=== PATIENT | male | born 1960 | race Caucasian/White ===

== ENCOUNTER 2018-04-26 13:10 | Outpatient (CLI) | payer BC ==
--- NOTE | 2018-04-27 13:47 | PET ---
NUCLEAR MEDICINE FDG PET CT: (Positron Emission Tomography) DATE: 04/26/18 HISTORY: 57-year-old male with esophageal cancer, C15.5, initial staging. COMPARISON: None. TECHNIQUE: IV injection F-18 Fluorodeoxyglucose (FDG) dose: 11.1 mCi PET and attenuation-correction CT performed from skull base to proximal thighs. FINDINGS: Attenuation correction CT demonstrates retained barium within numerous sigmoid colonic diverticula an d several in descending colonic diverticula. Cholecystectomy clips in the gallbladder fossa. No suspi cious hypermetabolic activity within the neck, chest, abdomen, or pelvis. IMPRESSION: No evidence of metastatic disease. FAUSTINA Gonzales POS: ROSA MARIA
== END 2018-04-26 13:11 | disposition home or self-care (01) ==
LOC: PET 13:10
PROVIDERS: ATTEND Internal Medicine Hematology & Oncology
DX: C15.9 Malignant neoplasm of esophagus, unspecified (principal)
CPT/HCPCS: 78815; A9552

== ENCOUNTER 2018-09-29 07:56 | Outpatient (CLI) | payer BC | END 2018-09-29 07:57 | disposition home or self-care (01) | LOC: CP 07:56 | PROVIDERS: ATTEND Thoracic Surgery (Cardiothoracic Vascular Surgery) | DX: Z01.818 Encounter for other preprocedural examination (principal); C15.5 Malignant neoplasm of lower third of esophagus; R06.02 Shortness of breath | CPT/HCPCS: 94060; 94727; 94729 ==

== ENCOUNTER 2018-09-29 09:39 | Outpatient (CLI) | payer BC ==
--- NOTE | 2018-09-29 11:47 | PET ---
EXAM: PET/CT HISTORY: Esophageal cancer. Status post chemoradiation therapy in July 2018. Exam requested for restaging. TECHNIQUE: PET scanning with CT attenuation correction was performed from the base of the brain to the proximal thighs following the intravenous administration of 11.5 millicuries [id number]. COMPARISON: 09/29/2018 FINDINGS: There is increased FDG localization in the posterior medial lung bases with maximum SUV of 4 consiste nt with postradiation changes. No candelario hypermetabolism is seen in the neck, chest, abdomen or pelvis. There are foci of increased FDG localization with maximum SUV of 3.5 involving the anterior aspects o f a couple of lower ribs likely due to trauma. No suspicious hypermetabolic liver, adrenal or skeletal lesions are seen. There is physiologic activity in the GI and tracts and the visualized portions of the brain. The CT scan used for attenuation correction demonstrates no evidence of pleural effusions or ascites. There is colonic diverticulosis. IMPRESSION: No evidence of metastatic disease.
== END 2018-09-29 09:40 | disposition home or self-care (01) ==
LOC: CAC 09:39
PROVIDERS: ATTEND Thoracic Surgery (Cardiothoracic Vascular Surgery)
DX: C15.9 Malignant neoplasm of esophagus, unspecified (principal)
CPT/HCPCS: 78815; A9552

== ENCOUNTER 2019-06-05 09:42 | Outpatient (CLI) | payer BC ==
--- NOTE | 2019-06-05 10:49 | CT ---
CHEST CT WITH CONTRAST ABDOMEN CT WITH CONTRAST PELVIC CT WITH CONTRAST: HISTORY: Esophageal cancer. Surgery. Surveillance. Correlation: PET imaging 09/29/2018. COMPARISON: None. FINDINGS: Chest CT: Mediastinum: No mass, lymphadenopathy or hematoma. Aorta: Appropriate enhancement and luminal diameter. No aneurysm, dissection or periaortic fat strand ing. Heart: Normal heart size. No significant pericardial fluid. Trachea and central bronchi: Patent. Pleural spaces: No pleural effusion. Right lung: No suspicious masses or consolidation. Scar/atelectasis in the right lower lobe. Left lung:No suspicious masses or consolidation. Minimal atelectatic changes in the left lower lobe. Pneumothorax: None. Abdomen CT: Gallbladder: Surgically absent. Portal vein: Patent. Liver: Appropriate enhancement.. Spleen: Appropriate enhancement. Pancreas: Appropriate enhancement. Adrenal glands: Appropriate enhancement. Lymphadenopathy: No retrocrural or periportal lymphadenopathy. Kidneys: Symmetric enhancement. Bilaterally no obstructive uropathy. 1.7 x 1.6 cm cyst in the left re nal cortex. Mesentery: No mass, lymphadenopathy, free air or free fluid. Alimentary canal: There is evidence of a gastric pull-through. Normal caliber small bowel loops. No s mall bowel obstruction. Unremarkable ileocecal junction. Normal caliber appendix. Decompressed colon. Diverticulosis, without evidence of diverticulitis. Pelvis CT: No pelvic mass, lymphadenopathy, free air or free fluid. Unremarkable urinary bladder. Osseous structures: There are no lytic or blastic lesions in the osseous structures. IMPRESSION: 1. No evidence of tumor recurrence. 2. Postsurgical changes compatible with gastric pull-through. 3. Sigmoid colon diverticulosis, without evidence of diverticulitis. Transcribed Date/Time: 06/05/2019 11:08 AM
[2019-06-05] MEDS ORDERED: Iopamidol 370 76% 100 ML VIAL ONE (15:52)
== END 2019-06-05 09:43 | disposition home or self-care (01) ==
LOC: CT 09:42
PROVIDERS: ATTEND Thoracic Surgery (Cardiothoracic Vascular Surgery)
DX: Z08 Encounter for follow-up examination after completed treatment for malignant neoplasm (principal); Z85.01 Personal history of malignant neoplasm of esophagus; Z98.890 Other specified postprocedural states; Z90.49 Acquired absence of other specified parts of digestive tract; K57.30 Diverticulosis of large intestine without perforation or abscess without bleeding
CPT/HCPCS: 71260; 74177; 82565

== ENCOUNTER 2019-07-04 06:12 | Day surgery (SDC) | payer BC ==
[2019-07-03 09:49] VITALS: BMI 20.9
[2019-07-04] MEDS ORDERED: Acetaminophen 500 MG TAB ONE (06:27)
[2019-07-04] MEDS ORDERED: Lidocaine 1% w/Epinephrine 1:100K 20 ML VIAL ONE (06:35)
[2019-07-04] MEDS ORDERED: Bupivacaine 0.25% HCL 30 ML VIAL ONE (06:35)
[2019-07-04] MEDS ORDERED: Ketorolac Tromethamine 30 MG/ML VIAL ONE (06:40)
[2019-07-04] MEDS ORDERED: Fentanyl 100 MCG/2 ML VIAL ONE (06:45)
[2019-07-04] MEDS ORDERED: Bupivacaine PF 0.5% 30 ML VIAL ONE (07:51)
--- NOTE | 2019-07-04 07:52 | RAD ---
Chest AP view INDICATION: Preop examination COMPARISON: CT of the chest, abdomen and pelvis dated June 05, 2019 FINDINGS: Lungs:The bibasilar scarring is stable. Cardiac silhouette:The curvilinear density seen along the right aspect of the heart is related to pat ient's gastric pull-through and is stable. Heart size is normal. Pulmonary vasculature:Normal Pleural spaces:Mild right-sided pleural thickening is stable. No definite new pleural effusion or pne umothorax is demonstrated. Upper abdomen:No abnormality seen. Osseous structures: No acute osseous abnormality. Additional findings:None. IMPRESSION: No acute cardiopulmonary abnormality. Stable postoperative change of the chest.
[2019-07-04] MEDS ORDERED: HYDROcodone/Acetaminophen 5/325 mg Tablet ONE (10:08)
[2019-07-04] MEDS ORDERED: PROPOFOL 200 MG/20 ML VIAL ONE (10:09)
[2019-07-04] MEDS ORDERED: Dexamethasone 20 MG/5 ML VIAL ONE (10:09)
[2019-07-04] MEDS ORDERED: ePHEDrine/0.9% NaCl/PF SYRINGE 50 mg/10 ml ONE (10:09)
[2019-07-04] MEDS ORDERED: Glycopyrrolate 0.2 MG/ML 5 ML SYRINGE ONE (10:09)
[2019-07-04] MEDS ORDERED: Succinylcholine Chloride 20 MG/ML 10 ml SYRINGE FS ONE (10:09)
[2019-07-04] MEDS ORDERED: Lidocaine 1% PF 5 ML VIAL ONE (10:09)
[2019-07-04] MEDS ORDERED: Ondansetron PF 4 MG/2 ML Vial ONE (10:09)
[2019-07-04] MEDS ORDERED: Morphine 2 MG/ML SYRINGE ONE (10:38)
--- NOTE | 2019-07-04 12:28 | OP ---
DATE OF PROCEDURE: 07/04/2019 PREOPERATIVE DIAGNOSIS: Right inguinal hernia. POSTOPERATIVE DIAGNOSIS: Right inguinal hernia, direct, large cord lipoma. PROCEDURE PERFORMED: Open right inguinal hernia repair with mesh using an extra-large mesh patch and plug, excision of a large cord lipoma, placement of On-Q pain pump. TURBINE ATTENDANT: Jj lan, medical student. ANESTHESIA: General endotracheal. INDICATIONS: The patient is a 59-year-old white male. He has a recent history of esophageal carcinoma for which he underwent surgery and reconstruction. He has had several incisions on his abdomen from this recent surgery and for this reason, I have recommended against a robotic repair of his inguinal hernia. He was taken to the operative room at this time for open repair. DESCRIPTION OF OPERATION: Informed consent was obtained. The patient was taken to the operating room, where general anesthesia was obtained with the patient in supine position. The right inguinal area was trimmed of hair, prepped with ChloraPrep, draped in sterile fashion. Local anesthetic was infiltrated using a mixture of 1% lidocaine with epinephrine as well as 0.25% Marcaine. Oblique right inguinal incision was created and dissection was carried through skin and subcutaneous tissue. The fascia was identified and opened parallel to its fiber, so as to open the external ring. The cord structures were identified and dissected circumferentially, controlled with a [place] drain. There was an obvious direct inguinal hernia. It encompassed the majority of the floor of the direct space. There was what appeared to be a cord lipoma within the spermatic cord. I first dissected the spermatic cord, dissected the cord lipoma and completely removed it, ligated its base with 3-0 Vicryl suture. Dissection within the remainder of the cord structure revealed no evidence of an indirect hernia. The direct hernia was circumscribed, incising the transversalis fascia around the base of the hernia. The inferior epigastric vessel was identified on the lateral aspect. An extra-large mesh plug was obtained and the apex was secured to the apex of the hernia sac and the complex was inverted in the preperitoneal space. The plug was secured to surrounding transected transversalis fascia with interrupted sutures of 2-0 Vicryl. I then imbricated the floor over the plug using three additional sutures of 2-0 Vicryl. A mesh patch was obtained, trimmed to appropriate size, placed within the floor of the inguinal canal, and secured to surrounding structures using interrupted sutures of 2-0 Vicryl. An On-Q pain pump was obtained and tunneled into the wound from superior exit site. It was positioned such that it was weaved through the mesh extending medially. The catheter was primed with 0.5% plain Marcaine. The external oblique fascia was then closed with a running suture of 3-0 Vicryl. The remainder of the wound was closed in layers with 3-0 and 4-0 Monocryl and Dermabond was placed externally. A drop of Dermabond was placed at the catheter exit site and it was coiled and positioned under an occlusive plastic dressing. The catheter was secured to the bulb, which had 120 mL of 0.5% Marcaine. There were no complications. Blood loss was negligible. The patient tolerated the procedure well and was taken to recovery room in stable condition. Job ID: [id number]
== END 2019-07-04 11:55 | disposition home or self-care (01) ==
LOC: SDC 06:12
PROVIDERS: ATTEND Specialist
PROC: 0YU50JZ Supplement Right Inguinal Region with Synthetic Substitute, Open Approach (ICD-10-PCS; principal; 2019-07-04)
DX: K40.90 Unilateral inguinal hernia, without obstruction or gangrene, not specified as recurrent (principal); D17.6 Benign lipomatous neoplasm of spermatic cord; N20.0 Calculus of kidney; B19.20 Unspecified viral hepatitis C without hepatic coma; I10 Essential (primary) hypertension; Z79.899 Other long term (current) drug therapy; Z85.01 Personal history of malignant neoplasm of esophagus
CPT/HCPCS: 71045; 93005; 93010; A4306; C1781; J0690; J1100; J1885; J2001; J2270; J2405; J2704; J3010; S0020

== ENCOUNTER 2020-06-25 14:09 | Outpatient (CLI) | payer BC | END 2020-06-25 14:10 | disposition home or self-care (01) | LOC: DTY/OP 14:09 | PROVIDERS: ATTEND Family Medicine | DX: R63.4 Abnormal weight loss (principal); I10 Essential (primary) hypertension; R73.01 Impaired fasting glucose; C15.9 Malignant neoplasm of esophagus, unspecified; Z90.49 Acquired absence of other specified parts of digestive tract | CPT/HCPCS: 97802 ==

== ENCOUNTER 2022-03-18 10:34 | Outpatient (CLI) | payer BC | END 2022-03-18 10:35 | disposition home or self-care (01) | LOC: RAD 10:34 | PROVIDERS: ATTEND Internal Medicine Gastroenterology | DX: C16.0 Malignant neoplasm of cardia (principal); R13.10 Dysphagia, unspecified; Z98.890 Other specified postprocedural states | CPT/HCPCS: 74220 ==

== ENCOUNTER 2022-07-02 14:47 | Outpatient (CLI) | payer BC | END 2022-07-02 14:48 | disposition home or self-care (01) | LOC: ULT 14:47 | PROVIDERS: ATTEND Urology | DX: R35.0 Frequency of micturition (principal); N28.1 Cyst of kidney, acquired; N27.0 Small kidney, unilateral; Z87.442 Personal history of urinary calculi | CPT/HCPCS: 76770 ==